=== PATIENT | female | born 1950 | race Caucasian/White ===

== ENCOUNTER 2018-06-12 21:54 | Emergency (ER) | payer BC ==
[~2018-06-12] VITALS: Ht 162.6 cm; Wt 83.2 kg
[2018-06-12 21:58] VITALS: Ht 162.6 cm; Wt 83.2 kg
[2018-06-12] MEDS ORDERED: PIOGLITAZONE15 MG PO (22:05)
[2018-06-12] MEDS ORDERED: VICTOZA0.6 MG/0.1 SQ (22:05)
[2018-06-12] MEDS ORDERED: BUTALB-APAP-CA1 EACH PO (22:06)
[2018-06-12] MEDS ORDERED: EFFEXOR75 MG PO (22:06)
[2018-06-12] MEDS ORDERED: LYRICA75 MG PO (22:06)
[2018-06-12] MEDS ORDERED: XANAX0.5 MG (22:07)
[2018-06-12] MEDS ORDERED: PERCOCET 5-3251 TAB PO (22:07)
[2018-06-12] MEDS ORDERED: TOPROL XL50 MG PO (22:07)
[2018-06-12] MEDS ORDERED: LIPITOR10 MG PO (22:08)
[2018-06-12] MEDS ORDERED: LISINOPRIL2.5 MG PO (22:08)
[2018-06-12] MEDS ORDERED: PROTONIX40 MG PO (22:08)
[2018-06-12] MEDS ORDERED: AMBIEN10 MG PO (22:08)
[2018-06-12] MEDS ORDERED: PROZAC40 MG PO (22:09)
[2018-06-12] MEDS ORDERED: ROBAXIN500 MG PO (23:53)
[2018-06-12] MEDS ORDERED: TORADOL10 MG PO (23:53)
[2018-06-13 00:41] VITALS: BP 179/73
== END 2018-06-13 00:42 | disposition home or self-care (01) ==
LOC: D.ER 21:54
DX: S16.1XXA Strain of muscle, fascia and tendon at neck level, initial encounter (principal); V49.9XXA Car occupant (driver) (passenger) injured in unspecified traffic accident, initial encounter; Y93.89 Activity, other specified; Y92.410 Unspecified street and highway as the place of occurrence of the external cause; S39.012A Strain of muscle, fascia and tendon of lower back, initial encounter

== ENCOUNTER 2018-07-23 08:59 | Inpatient (IN) | payer MEDICARE ==
[~2018-07-23] VITALS: Ht 162.6 cm; Wt 78.6 kg
--- NOTE | ~2018-07-23 | OP ---
PATIENT NAME: CHOLO RIVAS MEDICAL RECORD: [id number] :[birth year] LOCATION:D.MS [id number] ADMISSION DATE:07/23/18 SURGEON: JAMES PHILLIPS MD DATE OF OPERATION: 07/27/2018 PREOPERATIVE DIAGNOSIS: Severe spinal stenosis at T11-T12 secondary to spondylosis. POSTOPERATIVE DIAGNOSIS: Severe spinal stenosis at T11-T12 secondary to spondylosis. SURGEON: James Phillips MD PROCEDURE: Lumbar laminectomy, medial facetectomy and foraminotomy at T11-T12 with left-sided approach and sublaminar decompression. DESCRIPTION AND TECHNIQUE: After induction of general endotracheal anesthesia, the patient was rolled prone on chest and hip rolls. The thoracic spine was prepped and draped in usual sterile fashion. Fluoroscopic x-ray and spinal needle localized the T11-T12 interspace with a spinal needle. A stab incision was created with a #11 blade. Series of dilators was used to advance a METRx retractor at the T11-T12 interspace on the left side. Level was confirmed with fluoroscopic x-ray. A microscope and Midas Lyle drill were used to perform a laminectomy, medial facetectomy, and foraminal T11-T12 on the left. The spinous process at T11 and T12 were undermined with a Midas-Lyle drill and the lamina from that site was removed with a Midas-Lyle drill. Hypertrophied ligamentum flavum was removed with Cloward rongeurs. Following this, the dura was decompressed well. Next, a retractor was removed and that the fascia was closed with 2-0 Vicryl suture, the subdermal layer was closed with 3-0 Vicryl suture, the skin was closed with christie. Sterile dressing was applied to the wound. The patient was awakened in good condition, taken to recovery. All counts were reported as correct. Estimated blood loss was minimal. TRANSINT:[id number] Voice Confirmation ID: [id number] DOCUMENT ID: [id number] JAMES PHILLIPS MD CC: [id number] DICTATION DATE: 07/30/18805 NAPPER TENDER: 07/30/1838 ADM IN [place] [id number] [place] [address]
[~2018-07-23 08:59] MED LIST: AMBIEN10 MG PO; BUTALB-APAP-CA1 EACH PO; EFFEXOR75 MG PO; LIPITOR10 MG PO; LISINOPRIL2.5 MG PO; LYRICA75 MG PO; PERCOCET 5-3251 TAB PO; PIOGLITAZONE15 MG PO; PROTONIX40 MG PO; PROZAC40 MG PO; ROBAXIN500 MG PO; TOPROL XL50 MG PO; TORADOL10 MG PO; VICTOZA0.6 MG/0.1 SQ; XANAX0.5 MG PO
--- NOTE | 2018-07-23 11:22 | NUR ---
SPLINT APPLIED TO THE LLE PER EDP.
--- NOTE | 2018-07-23 11:23 | NUR ---
PT AWARE SHE IS BEING ADMITTED TO [facility], AWAITING BED ASSIGNMENT.
[2018-07-23] MEDS ORDERED: PIOGLITAZONE15 MG PO (11:27)
[2018-07-23] MEDS ORDERED: FEXOFENADINE H180 MG PO (11:30)
[2018-07-23 11:41] LABS: ANION GAP 9.1 mmol/L (8-16); BILIRUBIN - TOTAL 0.38 mg/dL (0.2-1.3); CALCIUM 8.7 mg/dL (8.5-10.1); CARBON DIOXIDE 29.5 mmol/L (21.0-32.0); CREATININE - SERUM 1.1 mg/dL (0.6-1.3); POTASSIUM - SERUM 4.6 mmol/L (3.5-5.1); PROTEIN - SERUM 6.8 g/dL (6.4-8.2)
[2018-07-23 11:43] LABS: BASOPHILS 0.4 % (0-2); EOSINOPHILS 3.1 % (0-7); HEMOGLOBIN 10.7 g/dL (12-16); IMMATURE GRANULOCYTES 0.1 % (0-5); LYMPHOCYTES 31.4 % (15-50); MCH 30.3 pg (26.0-34.0); MCHC 32.4 g/dL (31.0-37.0); MCV 93.5 fL (80.0-100.0); MEAN PLATELET VOLUME 11.2 fL (7.4-10.4); MONOCYTES 11.2 % (2-11); NEUTROPHILS 53.8 % (40-80); PLATELET COUNT 155 10x3/uL (130-400); RBC 3.53 10x6/uL (4.00-5.40); RDW 14.5 % (11.5-14.5); WBC 7.1 10x3/uL (4.8-10.8)
--- NOTE | 2018-07-23 12:00 | MORECARE ---
CASE MANAGEMENT DISCHARGE SUMMARY PATIENT: CHOLO RIVAS UNIT: [id number] ADM DATE: 07/23/18 AGE: 67 : 50 SEX: F ROOM/BED: D.2227 AUTHOR: DONNA COWAN PHYSICIAN: REFERRING PHYSICIAN: NIGHAT WILSON DO DATE OF SERVICE: 07/23/18 Discharge Plan Patient Name: CHOLO RIVAS [facility] [facility] 1950 Planned Disposition: Home Anticipated Discharge Date: 07/25/18 Discharge Date: Expected LOS: 2 Initial Reviewer: [email or web address] Initial Review Date: 07/23/2018 Generated: 07/23/18 1:00 pm DCPIA - Discharge Planning Initial Assessment Updated by [email or web address]: Chiara Wilson on 07/23/18 11:59 am * Is the patient Alert and Oriented? Yes * How many steps to enter\exit or inside your home? * PCP Dr. Kalyan Quiroz in [facility] - patient recently moved to [facility] and is looking for an new PCP. * Pharmacy [facility] near the [facility]. * Preadmission Environment Home Alone * ADLs Independent * Equipment Cane Glucometer Rolling Walker * List name and contact numbers for known caregivers / representatives who currently or will assist patient after discharge: Margret Albright - daughter - [phone] * Verbal permission to speak to the caregivers and representatives has been obtained from the patient. Yes * Community resources currently utilized None * Additional services required to return to the preadmission environment? No * Can the patient safely return to the preadmission environment? Yes * Has this patient been hospitalized within the prior 30 days at any hospital? No Patient Name: CHOLO RIVAS Page 12529 at 1200 All edits/amendments must be made on the electronic document DICTATION DATE: 07/23/18 1200 OPERATING ENGINEER APPRENTICE: MAMADOU 07/23/18 1200 RPT#: [id number] DC DATE: STATUS: ADM IN [facility] [address] [place] [address] END OF REPORT
--- NOTE | 2018-07-23 12:07 | MORECARE ---
CASE MANAGEMENT DISCHARGE SUMMARY PATIENT: CHOLO RIVAS UNIT: [id number] ADM DATE: 07/23/18 AGE: 67 : 50 SEX: F ROOM/BED: D.2227 AUTHOR: CAMRYN,DOC PHYSICIAN: REFERRING PHYSICIAN: NIGHAT WILSON DO DATE OF SERVICE: 07/23/18 Discharge Plan Patient Name: CHOLO RIVAS Facility: [facility]:[place] : 1950 Planned Disposition: Home Anticipated Discharge Date: 07/25/18 Discharge Date: Expected LOS: 2 Initial Reviewer: [email or web address] Initial Review Date: 07/23/2018 Generated: 07/23/18 1:07 pm Comments DCP- Discharge Planning Updated by [email or web address]: Chiara Wilson on 07/23/18 11:[address] Patient Name: CHOLO RIVAS Admission Status: ER Accout number: [id number] Admission Date: 07-23-2018 : 1950 Admission Diagnosis: Attending: NIGHAT WILSON Current LOS: 1 Anticipated DC Date: 07-25-2018 Planned Disposition: Home Primary Insurance: Seculert [facility] Discharge Planning Comments: CM met with patient to complete initial dc planning assessment. CM educated patient on the CM role and verbal consent given by patient to complete assessment. Patient lives at home alone and reports she is independent in her care. At discharge patient plans to return home alone and feels this is a safe discharge. CM discussed availability of home health, rehab services, and medical equipment. Patient denied known discharge needs at this time. Patient reports she recently moved to the [facility] and is needing to find a PCP here. This could cause a problem with arranging HH if needed at [place]. CM will continue to follow and will assist as needed with dc plans/needs. Surveyor Oil Well Directional: Chiara Wilson RN,[facility] DCPIA - Discharge Planning Initial Assessment Updated by [email or web address]: Chiara Wilson on 07/23/18 11:59 am * Is the patient Alert and Oriented? Yes * How many steps to enter\exit or inside your home? * PCP Dr. Kalyan Quiroz in [facility] - patient recently moved to [facility] and is looking for an new PCP. * Pharmacy [facility] near the [facility]. * Preadmission Environment Home Alone * ADLs Independent * Equipment Cane Glucometer Rolling Walker * List name and contact numbers for known caregivers / representatives who currently or will assist patient after discharge: Margret Albright - daughter - [phone] * Verbal permission to speak to the caregivers and representatives has been obtained from the patient. Yes * Community resources currently utilized None * Additional services required to return to the preadmission environment? No * Can the patient safely return to the preadmission environment? Yes * Has this patient been hospitalized within the prior 30 days at any hospital? No Last DP export: 07/23/18 11:00 am Patient Name: CHOLO RIVAS Page 53494 at 1207 All edits/amendments must be made on the electronic document DICTATION DATE: 07/23/181206 GLUE MACHINE OPERATOR: MAMADOU 07/23/181206 RPT#: [id number] DC DATE: STATUS: ADM IN [facility] [address] [place] [address] END OF REPORT
[2018-07-23 12:25] VITALS: BP 142/65; Ht 162.6 cm; Wt 78.6 kg
--- NOTE | 2018-07-23 12:29 | NUR ---
ASSESSMENT PER FLOW SHEET. PT IS WITHOUT DISTRESS AND SIGNS OF PAIN.FALL PREVENTION INITIATED. CALL LIGHT IN REACH
[2018-07-23 17:10] VITALS: BP 116/42
--- NOTE | 2018-07-23 19:55 | NUR ---
PT RESTING IN BED. ALERT AND ORIENTED. PT IS VERY UNPSET. PT STATES SHE HAS BEEN IN PAIN SINCE SHE HAS BEEN HERE AND NO ONE HAS OFFERED PAIN MEDICATION OR A DRINK OF WATER. I STATED TO PT I APOLIGIZE FOR HER LAYING IN PAIN AND I WILL BRING HER MEDICATION SHORTLY. NO SIGNS OF DISTRESS. BREATHING EVEN AND UNLABORED. IV SITE RT FA DRESSING CLEAN DRY AND INTACT. NO SIGNS OF INFECTION. BOWEL SOUNDS ACTIVE. NO LOWER LEG SWELLING PRESENT. CAST LT LEG CLEAN DRY AND INTACT. PLACED ICE PACK ON LEG AND ELEVATED LEG. WILL CONTINUE PLAN OF CARE. CALL LIGHT IN REACH. BED LOWERED AND LOCKED. RINKU ALARM ON. FAMILY AT BEDSIDE.
[2018-07-23 20:00] VITALS: BP 130/58
[2018-07-24] VITALS (7 sets, daily range): BP systolic 117–178; BP diastolic 46–69
--- NOTE | 2018-07-24 05:06 | NUR ---
I have reviewed this patient and I concur with the Shift Assessment completed by the Licensed Practical Nurse today this shift.
[2018-07-24 07:12] LABS: BASOPHILS 0.5 % (0-2); EOSINOPHILS 3.7 % (0-7); IMMATURE GRANULOCYTES 0.2 % (0-5); MCH 29.7 pg (26.0-34.0); MCHC 31.6 g/dL (31.0-37.0); MCV 94.1 fL (80.0-100.0); MEAN PLATELET VOLUME 12.2 fL (7.4-10.4); MONOCYTES 9.8 % (2-11); NEUTROPHILS 56.8 % (40-80); PLATELET COUNT 175 10x3/uL (130-400); RBC 4.04 10x6/uL (4.00-5.40); RDW 14.4 % (11.5-14.5); WBC 8.2 10x3/uL (4.8-10.8)
[2018-07-24 07:37] LABS: ALBUMIN 3.3 g/dL (3.4-5.0); ANION GAP 12.2 mmol/L (8-16); BILIRUBIN - TOTAL 0.41 mg/dL (0.2-1.3); CALCIUM 9.2 mg/dL (8.5-10.1); CARBON DIOXIDE 28.6 mmol/L (21.0-32.0); PROTEIN - SERUM 7.8 g/dL (6.4-8.2)
[2018-07-24 07:38] LABS: POTASSIUM - SERUM 3.8 mmol/L (3.5-5.1)
--- NOTE | 2018-07-24 08:00 | NUR ---
MORNING ASSESSMENT COMPLETE. SEE ASSESSMENT FLOWSHEET FOR FURTHER DETAILS. PT LYING IN BED AAO X4 TO PERSON, PLACE, TIME, AND SITUATION. DENIES NEEDS AT THIS TIME. CL IN REACH. SIDE RAILS UP X3 FOR PATIEN SAEFTY. FAMILY MEMBER AT BEDSIDE
[2018-07-24 18:34] LABS: APPEARANCE CLEAR (CLEAR); BILIRUBIN NEGATIVE (NEGATIVE); COLOR YELLOW (YELLOW); GLUCOSE NEGATIVE (NEGATIVE); KETONE NEGATIVE (NEGATIVE); NITRITE NEGATIVE (NEGATIVE); PROTEIN NEGATIVE (NEGATIVE); RED CELLS - URINE OCC /hpf (0-5); UROBILINOGEN NORMAL (NORMAL); WHITE CELLS - URINE 0-5 /hpf (0-5)
--- NOTE | 2018-07-24 21:00 | NUR ---
PT LYING IN BED, NO SIGNS OF DISTRESS. ALERT AND ORIENTED. FAMILY AT BEDSIDE. STATES PAIN 7/10 IN BACK. GAVE MORPHINE ORDERED. PT STARTED TO COMPLAIN OF ITCHING TO BILAT ARMS, NO HIVES PRESENT. MARIA ELENA HINTON SPORTS RECRUITER, ORDERED FOR BENADRYL 25MG IV Q6HPRN. GAVE BENADRYL ORDERED. PT REFUSES TO PUT BOOT ON LEFT ANKLE. ANKLE PROPPED ON PILLOW, APPLIED ICE PACK. IV LEFT AC SL, FLUSHES EASILY. DRESSING CDI. RINKU ON. DENIES OTHER NEEDS AT THIS TIME. CL IN REACH, WILL CONT TO MONITOR
[2018-07-25 04:39] VITALS: BP 156/51
[2018-07-25 07:36] LABS: BASOPHILS 0.3 % (0-2); HEMATOCRIT 36.7 % (36.0-48.0); HEMOGLOBIN 11.6 g/dL (12-16); IMMATURE GRANULOCYTES 0.2 % (0-5); LYMPHOCYTES 26.9 % (15-50); MCH 29.4 pg (26.0-34.0); MCHC 31.6 g/dL (31.0-37.0); MCV 93.1 fL (80.0-100.0); MEAN PLATELET VOLUME 12.5 fL (7.4-10.4); NEUTROPHILS 57.6 % (40-80); PLATELET COUNT 177 10x3/uL (130-400); RBC 3.94 10x6/uL (4.00-5.40); RDW 14.2 % (11.5-14.5); WBC 6.4 10x3/uL (4.8-10.8)
[2018-07-25 07:52] LABS: ALBUMIN 3.1 g/dL (3.4-5.0); ALKALINE PHOSPHATASE 84 U/L (46-116); ALT (SGPT) 111 U/L (10-68); BILIRUBIN - TOTAL 0.36 mg/dL (0.2-1.3); CALC OSMOLALITY 281 mosm/kg (275-300); CALCIUM 8.9 mg/dL (8.5-10.1); CARBON DIOXIDE 31.1 mmol/L (21.0-32.0); CHLORIDE - SERUM 104 mmol/L (98-107); CREATININE - SERUM 0.8 mg/dL (0.6-1.3); GLUCOSE 125 mg/dL (74-106); POTASSIUM - SERUM 3.9 mmol/L (3.5-5.1); PROTEIN - SERUM 7.2 g/dL (6.4-8.2); SODIUM 141 mmol/L (136-145); UREA NITROGEN 13 mg/dL (7-18); eGFR NON AFRICAN AMERICAN 76 mL/min (90-120)
[2018-07-25 09:35] VITALS: BP 160/62
--- NOTE | 2018-07-25 10:52 | NUR ---
MORNING ASSESSMENT COMPELTE. SEE ASSESSMENT FLWOSHEET FOR FURTHER DETIALS. PT LYING IN BED AAO X4 TO PERSON, PLACE, TIME , AND SITUATION. REQUESTING PAIN MED- WILL GIVE MORPHINE PER ORDER. DENIES FURTHER NEEDS AT THIS TIME. SIDE RAILS UP X3 FOR PT SAEFTY. BED IN LOWEST POSTIION.
[2018-07-25 13:51] VITALS: BP 126/54
--- NOTE | 2018-07-25 14:45 | NUR ---
PT REQUESTED PAIN MED- WENT IN ROOM TO GIVE MORPHINE AND PT STATED THAT IT MAKES HER ITCH AND SHE WANTS TO GET A DIFF MED. NOTIFIED ELLIOTT MATOS APN AND SHE PERSCRIBED ATAREX 25 FOR ITCHING. WENT BACK IN PTS ROOM TO TELL HER WE CAN GIVE ATAREX WITH MORPHINE TO HELP THE ITCHING AND PT REPLIES "DONT EVEN WORRY ABOUT IT ANYMORE. I ALREADY TOOK MY OWN PAIN MEDS THAT I BROUGHT". INFORMED PT THAT SHE NEEDS TO EITHER TAKE THEM HOME OR GIVE THEM TO ME SO I CAN LOCK THEM UP IN THE SAFE, PT REFUSED AND SAID SHE WOULD NOT GIVE ME HER MEDS. NOTIFIED DR WILSON AND HE IS GOING IN ROOM TO TALK TO PT.
--- NOTE | 2018-07-25 15:44 | NUR ---
No open or chronic wounds. Continue with pressure ulcer precautions: -Assess skin/bony prominences q shift -turn/reposition q 2 hours -bridge heels Wound care will monitor as needed.
[2018-07-25 18:07] VITALS: BP 142/61
[2018-07-25 20:00] VITALS: BP 149/46
--- NOTE | 2018-07-25 20:54 | NUR ---
OT NOTE: PT REFUSED SECONDARY TO PAIN.
--- NOTE | 2018-07-25 21:20 | NUR ---
AWAKE,ALERT.NO COMPLAITNS VOICED. MOVIE THEATER USHER MORPHINE IN USE FOR PAIN CONTROL. IV LEAKING AT SITE.DC'D WITH TIP INTACT. RESITED TO RFA X 1 ATTEMPT PER WILL SANCHEZ. NO DISTRESS NOTED. CL IN REACH
[2018-07-26 00:30] VITALS: BP 150/82
--- NOTE | 2018-07-26 03:45 | NUR ---
I have reviewed this patient and I concur with the Shift Assessment completed by the Licensed Practical Nurse today this shift.
[2018-07-26 05:00] VITALS: BP 150/65
[2018-07-26 06:46] LABS: BASOPHILS 0 % (0-2); EOSINOPHILS 0 % (0-7); HEMATOCRIT 34.8 % (36.0-48.0); HEMOGLOBIN 11.3 g/dL (12-16); IMMATURE GRANULOCYTES 0.1 % (0-5); LYMPHOCYTES 16.6 % (15-50); MCH 29.9 pg (26.0-34.0); MCHC 32.5 g/dL (31.0-37.0); MCV 92.1 fL (80.0-100.0); MEAN PLATELET VOLUME 12.2 fL (7.4-10.4); MONOCYTES 3.5 % (2-11); NEUTROPHILS 79.8 % (40-80); PLATELET COUNT 193 10x3/uL (130-400); RBC 3.78 10x6/uL (4.00-5.40); RDW 14.4 % (11.5-14.5)
[2018-07-26 06:47] LABS: WBC 8.8 10x3/uL (4.8-10.8)
[2018-07-26 07:01] LABS: ALBUMIN 2.9 g/dL (3.4-5.0); ANION GAP 11.8 mmol/L (8-16); BILIRUBIN - TOTAL 0.44 mg/dL (0.2-1.3); CARBON DIOXIDE 28.4 mmol/L (21.0-32.0); CREATININE - SERUM 0.9 mg/dL (0.6-1.3); POTASSIUM - SERUM 4.2 mmol/L (3.5-5.1); PROTEIN - SERUM 7.4 g/dL (6.4-8.2)
--- NOTE | 2018-07-26 08:00 | NUR ---
ALERT AND ORIENTED X 3. LUNGS CLEAR BILATERALLY IN ALL VALLE. HEART SOUNDS S1 AND S2 HEARD IN ALL VALLE. BOWEL SOUNDS ACTIVE X 4. SKIN INTACT WITHOUT REDNESS. IV TO RFA PATENT WITHOUT REDNESS. DENIES PAIN. DENIES FURTHER NEEDS. WILL CONTINUE TO MONITOR.
[2018-07-26 09:19] VITALS: BP 139/65
--- NOTE | 2018-07-26 10:51 | NUR ---
PATIENT LYING IN BED. DENIES PAIN. DENIES NEEDS AT THIS TIME.
[2018-07-26 12:27] VITALS: BP 135/54
--- NOTE | 2018-07-26 13:01 | NUR ---
EATING LUNCH. DENIES NEEDS. DENIES PAIN. WILL CONINUE TO MONITOR.
--- NOTE | 2018-07-26 15:14 | NUR ---
PATIENT RESTING IN BED. DENIES PAIN. DENIES NEEDS. WILL CONTINUE TO MONITOR.
--- NOTE | 2018-07-26 17:28 | NUR ---
PATIENT SITTING IN BED. DENIES PAIN. DENIES NEEDS. WILL CONTINUE TO MONITOR
--- NOTE | 2018-07-26 17:56 | NUR ---
PATIENT SITTING IN BED EATING DINNER. DENIES NEEDS
[2018-07-26 18:11] VITALS: BP 139/59
[2018-07-26 20:23] VITALS: BP 158/63
[2018-07-27 01:34] VITALS: BP 150/62
[2018-07-27 04:05] LABS: BASOPHILS 0.1 % (0-2); EOSINOPHILS 0 % (0-7); HEMATOCRIT 33.3 % (36.0-48.0); HEMOGLOBIN 10.8 g/dL (12-16); IMMATURE GRANULOCYTES 0.4 % (0-5); LYMPHOCYTES 14.4 % (15-50); MCH 29.6 pg (26.0-34.0); MCHC 32.4 g/dL (31.0-37.0); MCV 91.2 fL (80.0-100.0); MEAN PLATELET VOLUME 11.7 fL (7.4-10.4); MONOCYTES 2.7 % (2-11); NEUTROPHILS 82.4 % (40-80); PLATELET COUNT 195 10x3/uL (130-400); RBC 3.65 10x6/uL (4.00-5.40); RDW 14.4 % (11.5-14.5)
[2018-07-27 04:20] LABS: ALBUMIN 2.9 g/dL (3.4-5.0); ANION GAP 8.8 mmol/L (8-16); BILIRUBIN - TOTAL 0.38 mg/dL (0.2-1.3); CARBON DIOXIDE 29.6 mmol/L (21.0-32.0); CREATININE - SERUM 1.1 mg/dL (0.6-1.3); POTASSIUM - SERUM 4.4 mmol/L (3.5-5.1); PROTEIN - SERUM 7.3 g/dL (6.4-8.2)
[2018-07-27 04:58] VITALS: BP 141/63
--- NOTE | 2018-07-27 07:53 | NUR ---
NPO FOR SURGERY. DENIES NEEDS.CALL LIGHT IN REACH
--- NOTE | 2018-07-27 08:00 | NUR ---
ASSESSMENT PER FLOW SHEET. PT IS WITHOUT DISTRESS.CALL LIGHT IN REACH
[2018-07-27 08:52] VITALS: BP 143/53
--- NOTE | 2018-07-27 11:04 | NUR ---
iv tender, dcd with cath tip intact.IV SITED TO RIGHT UPPER ARM X1 STICK, ASEPTIC TECH,20G.
--- NOTE | 2018-07-27 12:30 | NUR ---
TO OR VIA BED
--- NOTE | 2018-07-27 15:19 | MORECARE ---
CASE MANAGEMENT DISCHARGE SUMMARY PATIENT: CHOLO RIVAS UNIT: [id number] ADM DATE: 07/23/18 AGE: 68 : 50 SEX: F ROOM/BED: D.2227 AUTHOR: CAMRYN,DOC PHYSICIAN: REFERRING PHYSICIAN: NIGHAT WILSON DO DATE OF SERVICE: 07/27/18 Discharge Plan Patient Name: CHOLO RIVAS Facility: [facility]:[place] : 1950 Planned Disposition: Home Anticipated Discharge Date: 07/25/18 Discharge Date: Expected LOS: 2 Initial Reviewer: [email or web address] Initial Review Date: 07/23/2018 Generated: 07/27/18 4:19 pm Comments DCP- Discharge Planning Updated by [email or web address]: Lani Wylie on 07/27/18 2:[address] PATIENT IS STILL IN SURGERY. I LEFT THE PHYSICIAN REFERRAL NUMBER AND ALSO THE NUMBER TO [facility]. CM WILL CONTINUE TO FOLLOW AND ASSIST WITH DISCHARGE PLANNING/NEEDS. DCP- Discharge Planning Updated by [id number]: Chiara Wilson on 07/23/18 11:[address] Patient Name: CHOLO RIVAS Admission Status: ER Accout number: [id number] Admission Date: 07-23-2018 : 1950 Admission Diagnosis: Attending: NIGHAT WILSON Current LOS: 1 Anticipated DC Date: 07-25-2018 Planned Disposition: Home Primary Insurance: Original [facility] Discharge Planning Comments: CM met with patient to complete initial dc planning assessment. CM educated patient on the CM role and verbal consent given by patient to complete assessment. Patient lives at home alone and reports she is independent in her care. At discharge patient plans to return home alone and feels this is a safe discharge. CM discussed availability of home health, rehab services, and medical equipment. Patient denied known discharge needs at this time. [place] needing [place] find a PCP here. This could cause a problem with arranging HH if needed [place]. CM will continue to follow and will assist as needed with dc plans/needs. Window Glass Cutter Off: Chiara Wilson RN,[facility] DCPIA - Discharge Planning Initial Assessment Updated by [email or web address]: Chiara Wilson on 07/23/18 11:59 am * Is the patient Alert and Oriented? Yes * How many steps to enter\exit or inside your home? * PCP Dr. Kalyan Quiroz in [facility] - patient recently moved to [facility] and is looking for an new PCP. * Pharmacy [facility] near the [facility]. * Preadmission Environment Home Alone * ADLs Independent * Equipment Cane Glucometer Rolling Walker * List name and contact numbers for known caregivers / representatives who currently or will assist patient after discharge: Margret Albright - daughter - [phone] * Verbal permission to speak to the caregivers and representatives has been obtained from the patient. Yes * Community resources currently utilized None * Additional services required to return to the preadmission environment? No * Can the patient safely return to the preadmission environment? Yes * Has this patient been hospitalized within the prior 30 days at any hospital? No Last DP export: 07/23/18 11:07 am Patient Name: CHOLO RIVAS Page [phone] at 1519 All edits/amendments must be made on the electronic document DICTATION DATE: 07/27/181518 CHAR FILTER OPERATOR HELPER: MAMADOU 07/27/181518 RPT#: [id number] DC DATE: STATUS: ADM IN [facility] [address] [place] [address] END OF REPORT
[2018-07-27 15:43] VITALS: BP 159/75
--- NOTE | 2018-07-27 15:46 | NUR ---
BACK FROM PACU VIA BED. PT S AWAKE AND WITHOUT DISTRESS.SEE VS FLOWSHEET
--- NOTE | 2018-07-27 17:31 | NUR ---
STILL DENIES PAIN AT PRESENT. FAMILY AT BESIDE. PT IS EATING DINNER TRAY
[2018-07-27 20:00] VITALS: BP 113/45
[2018-07-28 00:54] VITALS: BP 123/45
[2018-07-28 05:26] VITALS: BP 121/76
[2018-07-28 06:38] LABS: BASOPHILS 0 % (0-2); EOSINOPHILS 0 % (0-7); HEMATOCRIT 32.1 % (36.0-48.0); HEMOGLOBIN 10.3 g/dL (12-16); IMMATURE GRANULOCYTES 0.3 % (0-5); LYMPHOCYTES 10.3 % (15-50); MCH 29.4 pg (26.0-34.0); MCHC 32.1 g/dL (31.0-37.0); MCV 91.7 fL (80.0-100.0); MONOCYTES 3.6 % (2-11); NEUTROPHILS 85.8 % (40-80); PLATELET COUNT 208 10x3/uL (130-400); RDW 14.6 % (11.5-14.5)
[2018-07-28 07:06] LABS: WBC 15.8 10x3/uL (4.8-10.8)
[2018-07-28 07:07] LABS: ALBUMIN 2.6 g/dL (3.4-5.0); ANION GAP 12.4 mmol/L (8-16); BILIRUBIN - TOTAL 0.31 mg/dL (0.2-1.3); CALCIUM 8.5 mg/dL (8.5-10.1); CARBON DIOXIDE 26.8 mmol/L (21.0-32.0); POTASSIUM - SERUM 4.2 mmol/L (3.5-5.1); PROTEIN - SERUM 6.6 g/dL (6.4-8.2)
--- NOTE | 2018-07-28 07:30 | NUR ---
PT AAOX4 RESP EVEN AND NONLBAORED, WANTING TO SIT UP IN CHAIR AT BEDSIDE I EXPRESSED TO PT THAT I WOULD HAVE TO GET PHYSICAL THERAPY TO HELP WITH THAT PT NO SIGNS OF DISTRESS NOTED, CL IN REACH
[2018-07-28 09:04] VITALS: BP 126/44
[2018-07-28 12:15] VITALS: BP 140/56
--- NOTE | 2018-07-28 16:05 | NUR ---
I have reviewed this patient and I concur with the Shift Assessment completed by the Licensed Practical Nurse today this shift.
[2018-07-28 17:51] VITALS: BP 132/46
[2018-07-28 20:00] VITALS: BP 130/46
--- NOTE | 2018-07-28 22:15 | NUR ---
PT ALERT & ORIENTED. PAIN CONTROLLED WITH LEGAL BILLING SPECIALIST. PUT PT ON BEDPAN TO VOID. NO OTHER NEEDS. ASSESSMENT COMPLETE PER FLOW-SHEET. WILL CONTINUE TO MONITOR.
[2018-07-29] VITALS: BP 128/51
[2018-07-29 03:00] VITALS: BP 144/40
[2018-07-29 06:21] LABS: BASOPHILS 0 % (0-2); EOSINOPHILS 0 % (0-7); HEMATOCRIT 32.6 % (36.0-48.0); HEMOGLOBIN 10.4 g/dL (12-16); IMMATURE GRANULOCYTES 0.4 % (0-5); LYMPHOCYTES 10.9 % (15-50); MCH 29.3 pg (26.0-34.0); MCHC 31.9 g/dL (31.0-37.0); MCV 91.8 fL (80.0-100.0); MEAN PLATELET VOLUME 11.7 fL (7.4-10.4); MONOCYTES 4.8 % (2-11); NEUTROPHILS 83.9 % (40-80); PLATELET COUNT 189 10x3/uL (130-400); RBC 3.55 10x6/uL (4.00-5.40); RDW 14.7 % (11.5-14.5); WBC 12.2 10x3/uL (4.8-10.8)
[2018-07-29 06:50] LABS: ALBUMIN 2.5 g/dL (3.4-5.0); ANION GAP 10.7 mmol/L (8-16); BILIRUBIN - TOTAL 0.31 mg/dL (0.2-1.3); CALCIUM 8.2 mg/dL (8.5-10.1); CARBON DIOXIDE 27.3 mmol/L (21.0-32.0); PROTEIN - SERUM 6.5 g/dL (6.4-8.2)
[2018-07-29 09:54] VITALS: BP 140/50
--- NOTE | 2018-07-29 10:00 | NUR ---
PT WANTING BEDPAN DONE AT THIS TIME
[2018-07-29 13:43] VITALS: BP 153/59
[2018-07-29 17:49] VITALS: BP 123/60
--- NOTE | 2018-07-29 18:55 | NUR ---
I have reviewed this patient and I concur with the Shift Assessment completed by the Licensed Practical Nurse today this shift.
[2018-07-29 20:23] VITALS: BP 115/61
--- NOTE | 2018-07-29 21:57 | NUR ---
PT ALERT & ORIENTED. FSBS 286 - GAVE 6 UNITS INSULIN PER SS. GAVE SCHEDULED MEDS. COMPLETE ASSESSMENT PER FLOW-SHEET. NO OTHER NEEDS. WILL CONTINUE TO MONITOR.
[2018-07-30 00:47] VITALS: BP 136/55
[2018-07-30 05:27] VITALS: BP 112/80
[2018-07-30 06:44] LABS: BASOPHILS 0.1 % (0-2); EOSINOPHILS 0 % (0-7); HEMATOCRIT 33.2 % (36.0-48.0); HEMOGLOBIN 10.8 g/dL (12-16); IMMATURE GRANULOCYTES 0.7 % (0-5); LYMPHOCYTES 13.1 % (15-50); MCH 29.6 pg (26.0-34.0); MCHC 32.5 g/dL (31.0-37.0); MEAN PLATELET VOLUME 11.8 fL (7.4-10.4); NEUTROPHILS 82.1 % (40-80); PLATELET COUNT 216 10x3/uL (130-400); RBC 3.65 10x6/uL (4.00-5.40); RDW 14.2 % (11.5-14.5); WBC 10.6 10x3/uL (4.8-10.8)
[2018-07-30 07:12] LABS: ALBUMIN 2.5 g/dL (3.4-5.0); ALKALINE PHOSPHATASE 61 U/L (46-116); ALT (SGPT) 45 U/L (10-68); BILIRUBIN - TOTAL 0.31 mg/dL (0.2-1.3); CALC OSMOLALITY 295 mosm/kg (275-300); CALCIUM 8.2 mg/dL (8.5-10.1); CARBON DIOXIDE 29.5 mmol/L (21.0-32.0); CHLORIDE - SERUM 106 mmol/L (98-107); CREATININE - SERUM 0.8 mg/dL (0.6-1.3); GLUCOSE 231 mg/dL (74-106); POTASSIUM - SERUM 4.5 mmol/L (3.5-5.1); PROTEIN - SERUM 6.4 g/dL (6.4-8.2); SODIUM 142 mmol/L (136-145); UREA NITROGEN 29 mg/dL (7-18); eGFR NON AFRICAN AMERICAN 75 mL/min (90-120)
--- NOTE | 2018-07-30 08:00 | NUR ---
MORNING ASSESSMENT COMPLETE. SEE ASSESSMENT FLOWSHEET FOR FURTHER DETAILS. PT LYING IN BED AAO X4 TO PERSON, PLACE, TIME, AND SITUATION. DENIES NEEDS AT THIS TIME. CL IN REACH. SIDE RAILS UP X3 FOR PT SAEFTY. BED IN LOWEST POSITION.
[2018-07-30 10:07] VITALS: BP 168/69
[2018-07-30 14:37] VITALS: BP 152/60
--- NOTE | 2018-07-30 14:46 | NUR ---
NUTRITION F/U PT REPORTS TOLERATING DIABETIC DIET WITH GOOD PO INTAKE. USING AVAILABLE INFORMATION PT REMAINS AT LOW NUTRITIONAL RISK. RD FOLLOWING
--- NOTE | 2018-07-30 14:58 | NUR ---
All information has been submitted to [facility] for acute inpatient rehab Pending auth # [id number]. Will wait for a determination regarding authorization for the ARU. Katie Cifuentes RN Clinical Liaison, Rehab
--- NOTE | 2018-07-30 15:52 | NUR ---
OT NOTE: PT COMPLETED BUE AROM EXS. PT COMPLETED SIMPLE HYGIENE TASKS WITH SET UP. THANK YOU, ROSIE CARLSON
[2018-07-30 18:12] VITALS: BP 138/53
[2018-07-30 21:57] VITALS: BP 146/55
[2018-07-31 01:45] VITALS: BP 123/48
--- NOTE | 2018-07-31 05:02 | NUR ---
PT HAS RESTED THIS SHIFT. HAS HAD NO C/O PAIN. CALL LIGHT REMAINS IN PLACE. DRESSING TO BACK REMAINS CLEAN DRY AND INTACT.
[2018-07-31 05:19] VITALS: BP 141/56
[2018-07-31 06:32] LABS: BASOPHILS 0 % (0-2); EOSINOPHILS 0 % (0-7); HEMATOCRIT 33.2 % (36.0-48.0); HEMOGLOBIN 10.7 g/dL (12-16); IMMATURE GRANULOCYTES 0.6 % (0-5); LYMPHOCYTES 13.1 % (15-50); MCH 29.4 pg (26.0-34.0); MCHC 32.2 g/dL (31.0-37.0); MCV 91.2 fL (80.0-100.0); MEAN PLATELET VOLUME 11.6 fL (7.4-10.4); MONOCYTES 5.4 % (2-11); NEUTROPHILS 80.9 % (40-80); PLATELET COUNT 215 10x3/uL (130-400); RBC 3.64 10x6/uL (4.00-5.40); RDW 14.2 % (11.5-14.5); WBC 11.6 10x3/uL (4.8-10.8)
[2018-07-31 07:25] LABS: ALBUMIN 2.3 g/dL (3.4-5.0); BILIRUBIN - TOTAL 0.38 mg/dL (0.2-1.3); CALCIUM 8.4 mg/dL (8.5-10.1); CARBON DIOXIDE 29.3 mmol/L (21.0-32.0); CREATININE - SERUM 0.9 mg/dL (0.6-1.3); POTASSIUM - SERUM 4.3 mmol/L (3.5-5.1); PROTEIN - SERUM 6.1 g/dL (6.4-8.2)
[2018-07-31 08:17] VITALS: BP 152/62
--- NOTE | 2018-07-31 09:20 | NUR ---
PATIENT ALERT AND ORIENTED X 3. LUNGS CLEAR BILATERALLY IN ALL VALLE. HEART SOUNDS S1 AND S2 HEARD BILATERALLY IN ALL VALLE. BOWEL SOUNDS ACIVE X 4. SKIN INTACT WITHOUT REDNESS. ASSISTED TO BEDPAN. LARGE VOID NOTED. IV TO LEFT THUMB PATENT WITHOUT REDNESS. RHEOLOGIST D/C. PATIENT EDUCATION PROVIDED ON PO PAIN MEDICATION. PATIENT STATES IS READY TO MOVE TO REHAB. WILL CONTINUE TO MONITOR.
--- NOTE | 2018-07-31 10:26 | NUR ---
PATIENT LYING IN BED. STATES PAIN 4/10. DOES NOT WANT PRN PO PAIN MEDICATION AT THIS TIME. WILL CONTINUE TO MONITOR.
--- NOTE | 2018-07-31 13:21 | NUR ---
OT NOTE: PT PERFORMED WELL TODAY. BED MOB WITH VERY MINIMAL ASSIST FOR SUPINE TO SIT AND SIT TO SUPINE. APPLIED BACK BRACE AND PERFORMED STANDING ACT WITH NWB IN R LE. ABLE TO STAND X 3 TRIALS AT APPROX 2.5 MIN EACH. EDUCATED AND PRACTICED HIP FLEX BEFORE DECENT INTO SITTING TO PREVENT PT FROM FALLING BACKWARDS INTO BED. STRENGTHENING EXS WITH MIN REST BREAKS. UPPER BODY GROOMING AND DRESSING WITH SET UP. PT WILL BE A GREAT REHAB CANDIDATE. TORSTEN BOLES, OTR/L
[2018-07-31 13:27] VITALS: BP 146/68
--- NOTE | 2018-07-31 13:30 | NUR ---
LUNCH AT BEDSIDE. DENIES NEEDS. WILL CONTINUE TO MONITOR
--- NOTE | 2018-07-31 14:43 | NUR ---
RESTING IN BED. WILL CONTINUE TO MONITOR
--- NOTE | 2018-07-31 15:58 | NUR ---
PATIENT STATES STILL IN PAIN 9/10 AFTER PRN TRAMADOL.
--- NOTE | 2018-07-31 16:33 | NUR ---
PRN NORCO GIVEN FOR PAIN 01/01. WILL CONTINUE TO MONITOR
--- NOTE | 2018-07-31 17:03 | NUR ---
OT NOTE: PT COMPLETED BED MOB WITH CGA. PT COMPLETED EOB SITTING BALANCE WITH SBA. PT COMPLETED BUE AROM AXS. THANK YOU, ROSIE CARLSON
[2018-07-31 17:49] VITALS: BP 173/67
--- NOTE | 2018-07-31 18:46 | NUR ---
ASSISTED TO BEDPAN. DENIES FURTHER NEEDS
[2018-07-31 21:18] VITALS: BP 140/54
[2018-08-01 02:04] VITALS: BP 154/60
[2018-08-01 05:39] LABS: BASOPHILS 0 % (0-2); EOSINOPHILS 0.1 % (0-7); HEMATOCRIT 34.1 % (36.0-48.0); HEMOGLOBIN 11.1 g/dL (12-16); IMMATURE GRANULOCYTES 0.6 % (0-5); LYMPHOCYTES 18.3 % (15-50); MCH 29.2 pg (26.0-34.0); MCHC 32.6 g/dL (31.0-37.0); MCV 89.7 fL (80.0-100.0); MONOCYTES 9.5 % (2-11); NEUTROPHILS 71.5 % (40-80); PLATELET COUNT 251 10x3/uL (130-400); RDW 14.1 % (11.5-14.5); WBC 13.2 10x3/uL (4.8-10.8)
[2018-08-01 05:46] LABS: ALBUMIN 2.4 g/dL (3.4-5.0); ANION GAP 8.8 mmol/L (8-16); BILIRUBIN - TOTAL 0.33 mg/dL (0.2-1.3); CALCIUM 8.2 mg/dL (8.5-10.1); CARBON DIOXIDE 30.9 mmol/L (21.0-32.0); CREATININE - SERUM 0.9 mg/dL (0.6-1.3); POTASSIUM - SERUM 3.7 mmol/L (3.5-5.1)
[2018-08-01 05:59] VITALS: BP 149/71
--- NOTE | 2018-08-01 07:45 | NUR ---
ASSESSMENT PER FLOW SHEET. PT IS WITHOUT DISTRESS.FALL PREVENTION IN PLACE. MOITOR FOR NEEDS
[2018-08-01 09:41] VITALS: BP 171/68
--- NOTE | 2018-08-01 14:20 | NUR ---
OT NOTE: PT REPORTED INCREASED PAIN IN B FEET TODAY. REPORTED THAT THEY FELT COLD AND NUMB. PERFORMED BED MOB WITH SPV; PRACTICED SIT TO STAND X 3 REPS WITH NWB AND USE OF WALKER WITH MIN/MOD ASSIST. STANDING BALANCE AND TOLERANCE ACT X 3 TRIALS AT 2 MIN EACH. GROOMING, FEEDING, AND UE DRSSING WITH SET UP/MIN ASSIST; EXTENSIVE ASSIST WITH DONNING SOCKS AND BACK BRACE. PT DOING WELL AND REQUESTING TO GO TO REHAB. D/W NEUROSURGICAL NURSE WHO REPORTS THAT SHE MAY BE ACCEPTED TODAY. TORSTEN BOLES, OTR/L
[2018-08-01 15:09] VITALS: BP 146/56
[2018-08-01 15:15] LABS: APPEARANCE CLEAR (CLEAR); BILIRUBIN NEGATIVE (NEGATIVE); COLOR YELLOW (YELLOW); GLUCOSE NEGATIVE (NEGATIVE); KETONE NEGATIVE (NEGATIVE); NITRITE NEGATIVE (NEGATIVE); PROTEIN NEGATIVE (NEGATIVE); SPECIFIC GRAVITY 1.015 (1.005-1.020); UROBILINOGEN NORMAL (NORMAL)
--- NOTE | 2018-08-01 16:20 | NUR ---
Recieved a call from Araseli with [facility] . The medical appointment clerk has denied the request for ARU for this patient stating it does not meet IQ criteria. If physician disagrees a peer to peer can be arranged by calling Araseli with the attendings name and contact number within 7 days of deniel date 08/01/18. Called and left a V/M for the CM Lani Wylie. Katie Cifuentes RN Clinical Liaison, Rehab
--- NOTE | 2018-08-01 16:47 | MORECARE ---
CASE MANAGEMENT DISCHARGE SUMMARY PATIENT: CHOLO RIVAS UNIT: [id number] ADM DATE: 07/23/18 AGE: 68 : 50 SEX: F ROOM/BED: D.2227 AUTHOR: CAMRYN,DOC PHYSICIAN: REFERRING PHYSICIAN: NIGHAT WILSON DO DATE OF SERVICE: 08/01/18 Discharge Plan Patient Name: CHOLO RIVAS Facility: [facility]:[place] : 1950 Planned Disposition: Home Anticipated Discharge Date: 07/25/18 Discharge Date: Expected LOS: 2 Initial Reviewer: [email or web address] Initial Review Date: 07/23/2018 Generated: 08/01/18 5:47 pm Comments DCP- Discharge Planning Updated by [email or web address]: Lani Wylie on 08/01/18 3:[address] Spoke with the patient concerning rehab and she is agreeable to SNF if inpatient rehab is denied. She would like to go to [place], her daughter lives there. She is going to ask her daughter about [facility] in [place] and will let me know if I can send the referral there. CM will continue to follow and assist with discharge planning/needs. DCP- Discharge Planning Updated by [email or web address]: Lani Wylie on 07/27/18 2:[address] PATIENT IS STILL IN SURGERY. I LEFT THE PHYSICIAN REFERRAL NUMBER AND ALSO THE NUMBER TO [facility]. CM WILL CONTINUE TO FOLLOW AND ASSIST WITH DISCHARGE PLANNING/NEEDS. DCP- Discharge Planning Updated by [email or web address]: Chiara Wilson on 07/23/18 11:[address] Patient Name: CHOLO RIVAS Admission Status: ER Accout number: [id number] Admission Date: 07-23-2018 : 1950 Admission Diagnosis: Attending: NIGHAT WILSON Current LOS: 1 Anticipated DC Date: 07-25-2018 Planned Disposition: Home Primary Insurance: [facility] ADVANTAGE [facility] Discharge Planning Comments: CM met with patient to complete initial dc planning assessment. CM educated patient on the CM role and verbal consent given by patient to complete assessment. Patient lives at home alone and reports she is independent in her care. At discharge patient plans to return home alone and feels this is a safe discharge. CM discussed availability of home health, rehab services, and medical equipment. Patient denied known discharge needs at this time. Patient reports she recently moved to the [facility] and is needing to find a PCP here. This could cause a problem with arranging HH if needed at [place]. CM will continue to follow and will assist as needed with dc plans/needs. Senior Editor: Chiara Wilson RN,[facility] DCPIA - Discharge Planning Initial Assessment Updated by [email or web address]: Chiara Wilson on 07/23/18 11:59 am * Is the patient Alert and Oriented? Yes * How many steps to enter\exit or inside your home? * PCP Dr. Kalyan Quiroz in [facility] - patient recently moved to [facility] and is looking for an new PCP. * Pharmacy [facility] near the [facility]. * Preadmission Environment Home Alone * ADLs Independent * Equipment Cane Glucometer Rolling Walker * List name and contact numbers for known caregivers / representatives who currently or will assist patient after discharge: Margret Albright - daughter - [phone] * Verbal permission to speak to the caregivers and representatives has been obtained from the patient. Yes * Community resources currently utilized None * Additional services required to return to the preadmission environment? No * Can the patient safely return to the preadmission environment? Yes * Has this patient been hospitalized within the prior 30 days at any hospital? No Last DP export: 07/27/18 2:19 pm Patient Name: CHOLO RIVAS Page 46738 at 1647 All edits/amendments must be made on the electronic document DICTATION DATE: 08/01/181646 UNIX DEVELOPER: MAMADOU 08/01/181646 RPT#: [id number] DC DATE: STATUS: ADM IN [facility] [address] [place] [address] END OF REPORT
[2018-08-01 17:54] VITALS: BP 133/49
--- NOTE | 2018-08-01 19:03 | NUR ---
AWAKE AND ALERT OX4 SRX2 AND BED IS LOW WITH CALL LIGHT IN REACH. LFT FA IV WITH LR AT 50/HR NO EDEMA NO PAIN SKIN WARM AND DRY AND LCTA DENIES NEEDS AT THIS TIME.
--- NOTE | 2018-08-01 19:56 | NUR ---
REMAINS WITHOUT NEEDS,WITHOUT CHANGE. CONT PLAN OF CARE
--- NOTE | 2018-08-01 21:05 | NUR ---
I EXPLAINED TO PT ABOUT THE DANGERS OF TYLENOL OD BEFORE GIVING NARCO
[2018-08-01 22:22] VITALS: BP 129/53
--- NOTE | 2018-08-02 00:58 | NUR ---
AT REST WITH EYES CLOSED NO NOTED DISTRESS
--- NOTE | 2018-08-02 04:33 | NUR ---
I have reviewed this patient and I concur with the Shift Assessment completed by the Licensed Practical Nurse today this shift.
[2018-08-02 05:16] VITALS: BP 134/51
[2018-08-02 05:46] LABS: BASOPHILS 0 % (0-2); EOSINOPHILS 1.6 % (0-7); HEMATOCRIT 34.1 % (36.0-48.0); HEMOGLOBIN 11.1 g/dL (12-16); IMMATURE GRANULOCYTES 0.7 % (0-5); LYMPHOCYTES 37.6 % (15-50); MCH 29.2 pg (26.0-34.0); MCHC 32.6 g/dL (31.0-37.0); MCV 89.7 fL (80.0-100.0); MEAN PLATELET VOLUME 11.2 fL (7.4-10.4); MONOCYTES 8.1 % (2-11); PLATELET COUNT 234 10x3/uL (130-400); RDW 14.4 % (11.5-14.5)
[2018-08-02 06:10] LABS: ALBUMIN 2.5 g/dL (3.4-5.0); ANION GAP 8.7 mmol/L (8-16); BILIRUBIN - TOTAL 0.41 mg/dL (0.2-1.3); CALCIUM 8.1 mg/dL (8.5-10.1); CARBON DIOXIDE 30.4 mmol/L (21.0-32.0); CREATININE - SERUM 0.9 mg/dL (0.6-1.3); POTASSIUM - SERUM 4.1 mmol/L (3.5-5.1); PROTEIN - SERUM 5.9 g/dL (6.4-8.2)
--- NOTE | 2018-08-02 07:34 | MORECARE ---
CASE MANAGEMENT DISCHARGE SUMMARY PATIENT: CHOLO RIVAS UNIT: [id number] ADM DATE: 07/23/18 AGE: 68 : 50 SEX: F ROOM/BED: D.2227 AUTHOR: CAMRYNDOC PHYSICIAN: REFERRING PHYSICIAN: NIGHAT WILSNO DO DATE OF SERVICE: 08/02/18 Discharge Plan Patient Name: CHOLO RIVAS Facility: [facility]:[place] : 1950 Planned Disposition: Home Anticipated Discharge Date: 07/25/18 Discharge Date: Expected LOS: 2 Initial Reviewer: [email or web address] Initial Review Date: 07/23/2018 Generated: 08/02/18 8:34 am Comments DCP- Discharge Planning Updated by [email or web address]: Lani Wylie on 08/01/18 3:[address] Spoke with the patient concerning rehab and she is agreeable to SNF if inpatient rehab is denied. She would like to go to [place], her daughter lives there. She is going to ask her daughter about [facility] in [place] and will let me know if I can send the referral there. CM will continue to follow and assist with discharge planning/needs. DCP- Discharge Planning Updated by [email or web address]: Lani Wylie on 07/27/18 2:[address] PATIENT IS STILL IN SURGERY. I LEFT THE PHYSICIAN REFERRAL NUMBER AND ALSO THE NUMBER TO [facility]. CM WILL CONTINUE TO FOLLOW AND ASSIST WITH DISCHARGE PLANNING/NEEDS. DCP- Discharge Planning Updated by [email or web address]: Chiara Wilson on 07/23/18 11:[address] Patient Name: CHOLO RIVAS Admission Status: ER Accout number: [id number] Admission Date: 07-23-2018 : 1950 Admission Diagnosis: Attending: NIGHAT WILSON Current LOS: 1 Anticipated DC Date: 07-25-2018 Planned Disposition: Home Primary Insurance: [facility] ADVANTAGE [facility] Discharge Planning Comments: CM met with patient to complete initial dc planning assessment. CM educated patient on the CM role and verbal consent given by patient to complete assessment. Patient lives at home alone and reports she is independent in her care. At discharge patient plans to return home alone and feels this is a safe discharge. CM discussed availability of home health, rehab services, and medical equipment. Patient denied known discharge needs at this time. Patient reports she recently moved to the [facility] and is needing to find a PCP here. This could cause a problem with arranging HH if needed at [place]. CM will continue to follow and will assist as needed with dc plans/needs. Portable Grinding Machine Operator: Chiara Wilson RN,[facility] DCPIA - Discharge Planning Initial Assessment Updated by [email or web address]: Chiara Wilson on 07/23/18 11:59 am * Is the patient Alert and Oriented? Yes * How many steps to enter\exit or inside your home? * PCP Dr. Kalyan Quiroz in [facility] - patient recently moved to [facility] and is looking for an new PCP. * Pharmacy [facility] near the [facility]. * Preadmission Environment Home Alone * ADLs Independent * Equipment Cane Glucometer Rolling Walker * List name and contact numbers for known caregivers / representatives who currently or will assist patient after discharge: Margret Albright - daughter - [phone] * Verbal permission to speak to the caregivers and representatives has been obtained from the patient. Yes * Community resources currently utilized None * Additional services required to return to the preadmission environment? No * Can the patient safely return to the preadmission environment? Yes * Has this patient been hospitalized within the prior 30 days at any hospital? No External Providers External Provider: [facility] Next Contact Date: Service Request Date: Service Type: Resolution: Reviewer: Comments: Last DP export: 08/01/18 3:47 p Patient Name: CHOLO RIVAS Page [id number] at 0734 All edits/amendments must be made on the electronic document DICTATION DATE: 08/02/1834 CRESTER: DM 08/02/1834 RPT#: [id number] DC DATE: STATUS: ADM IN [facility] [address] [place] [address] END OF REPORT
--- NOTE | 2018-08-02 07:48 | MORECARE ---
CASE MANAGEMENT DISCHARGE SUMMARY PATIENT: CHOLO RIVAS UNIT: [id number] ADM DATE: 07/23/18 AGE: 68 : 50 SEX: F ROOM/BED: D.2227 AUTHOR: CAMRYN,DOC PHYSICIAN: REFERRING PHYSICIAN: NIGHAT WILSON DO DATE OF SERVICE: 08/02/18 Discharge Plan Patient Name: CHOLO RIAVS Facility: [facility]:[place] : 1950 Planned Disposition: Home Anticipated Discharge Date: 07/25/18 Discharge Date: Expected LOS: 2 Initial Reviewer: [email or web address] Initial Review Date: 07/23/2018 Generated: 08/02/18 8:48 am Comments DCP- Discharge Planning Updated by [id number]: Lani Wylie on 08/02/18 6:[address] Spoke with patient this morning and she states she would just rather go to [facility] in [place] for rehab. CELINE signed and I notified mike Nobles for [facility], supporting clinical faxed. CM will continue to follow and assist with discharge planning/needs. DCP- Discharge Planning Updated by [email or web address]: Lani Wylie on 08/01/18 3:[address] Spoke with the patient concerning rehab and she is agreeable to SNF if inpatient rehab is denied. She would like to go to [place], her daughter lives there. She is going to ask her daughter about [facility] in [place] and will let me know if I can send the referral there. CM will continue to follow and assist with discharge planning/needs. DCP- Discharge Planning Updated by [email or web address]: Lani Sheehanmaggie on 07/27/18 2:[address] PATIENT IS STILL IN SURGERY. I LEFT THE PHYSICIAN REFERRAL NUMBER AND ALSO THE NUMBER TO [facility]. CM WILL CONTINUE TO FOLLOW AND ASSIST WITH DISCHARGE PLANNING/NEEDS. DCP- Discharge Planning Updated by [id number]: Chiara Wilson on 07/23/18 11:[address] Patient Name: CHOLO RIVAS Admission Status: ER Accout number: [id number] Admission Date: 07-23-2018 : 1950 Admission Diagnosis: Attending: NIGHAT WILSON Current LOS: 1 Anticipated DC Date: 07-25-2018 Planned Disposition: Home Primary Insurance: [employer] [facility] Discharge Planning Comments: CM met with patient to complete initial dc planning assessment. CM educated patient on the CM role and verbal consent given by patient to complete assessment. Patient lives at home alone and reports she is independent in her care. At discharge patient plans to return home alone and feels this is a safe discharge. CM discussed availability of home health, rehab services, and medical equipment. Patient denied known discharge needs at this time. Patient reports she recently moved to the [facility] and is needing to find a PCP here. This could cause a problem with arranging HH if needed at dc. CM will continue to follow and will assist as needed with dc plans/needs. Chemical Weigher: Chiara Wilson RN,[facility] DCPIA - Discharge Planning Initial Assessment Updated by [email or web address]: Chiara Wilson on 07/23/18 11:59 am * Is the patient Alert and Oriented? Yes * How many steps to enter\exit or inside your home? * PCP Dr. Kalyan Quiroz in [facility] - patient recently moved to [facility] and is looking for an new PCP. * Pharmacy [facility] near the [facility]. * Preadmission Environment Home Alone * ADLs Independent * Equipment Cane Glucometer Rolling Walker * List name and contact numbers for known caregivers / representatives who currently or will assist patient after discharge: Margret Albright - daughter - [phone] * Verbal permission to speak to the caregivers and representatives has been obtained from the patient. Yes * Community resources currently utilized None * Additional services required to return to the preadmission environment? No * Can the patient safely return to the preadmission environment? Yes * Has this patient been hospitalized within the prior 30 days at any hospital? No Coverage Notice Reviewer: [email or web address] Mary Jo Wylie Notice Issued Date-Time: 08/02/2018 7:39 Notice Type: Patient Choice Letter Notice Delivered To: Patient Relationship to Patient: Supply Chain Assistant Name: Delivery Method: HAND - Hand Delivered Elizabeth Days: Prior Verbal Notification: Recipient Understood Notice: Yes Recipient Signature: Yes Med Rec Note Co-signed by Attending: Coverage Notice Comment: CELINE FOR [facility] Aaron DP export: 08/02/18 6:34 a Patient Name: CHOLO RIVAS Page 58993 at 0748 All edits/amendments must be made on the electronic document DICTATION DATE: 08/02/18746 NEGATIVE DEVELOPER: MAMADOU 08/02/18746 RPT#: [id number] DC DATE: STATUS: ADM IN [facility] [address] [place] [address] END OF REPORT
--- NOTE | 2018-08-02 07:50 | NUR ---
PT RESTING IN BED, REQUESTING BED LUCAS. ASSISTED PT WITH USE OF BED LUCAS, PROVIDING ALBERTINA CARE. RESP EVEN AND UNLABORED. REPORTS PAIN 8/10 AT THIS TIME BACK AND ANKLES. INSTRUCTED PAIN MED TO BE ADMINISTERED PER MD ORDERS. IV TO LEFT FOREARM WITH LR @ 50ML/HR INFUSING VIA PUMP. SITE WITHOUT REDNESS OR EDEMA. DENIES FURTHER NEEDS AT THIS TIME. CL WITHIN REACH. ENCOURAGED TO CALL WITH NEEDS. CONTINUE POC
[2018-08-02 08:36] VITALS: BP 148/62
--- NOTE | 2018-08-02 10:00 | NUR ---
PT REPORTS PAIN 10/10 IN MID BACK DESCRIBED AND SHARP STABBING THAT IS INTERMITTENT. NURSE NOTIFIED OF PT PAIN. PAIN ADDRESSED. SEE EMAR.
--- NOTE | 2018-08-02 11:57 | MORECARE ---
CASE MANAGEMENT DISCHARGE SUMMARY PATIENT: CHOLO RIVAS UNIT: [id number] ADM DATE: 07/23/18 AGE: 68 : 50 SEX: F ROOM/BED: D.2227 AUTHOR: CAMRYN,DOC PHYSICIAN: REFERRING PHYSICIAN: NIGHAT WILSON DO DATE OF SERVICE: 08/02/18 Discharge Plan Patient Name: CHOLO RIVAS Facility: [facility]:[place] : 1950 Planned Disposition: Home Anticipated Discharge Date: 07/25/18 Discharge Date: Expected LOS: 2 Initial Reviewer: [email or web address] Initial Review Date: 07/23/2018 Generated: 08/02/18 12:57 pm Comments DCP- Discharge Planning Updated by [email or web address]: Lani Sheehanmaggie on 08/02/18 10:[address] Received a call from Araseli with [facility] that she had made a mistake and patient does meet inpatient rehab criteria with authorization for 2 weeks #[id number]. I spoke with the patient and she wants to go to [facility] for SNF. I informed Araseli and gave Araseli's number to Yin Lacey to call her for authorization. DCP- Discharge Planning Updated by [id number]: Lani Sheehnamaggie on 08/02/18 6:[address] Spoke with patient this morning and she states she would just rather go to [facility] in [place] for rehab. CELINE signed and I notified mike Nobles for [facility], supporting clinical faxed. CM will continue to follow and assist with discharge planning/needs. DCP- Discharge Planning Updated by [email or web address]: Lani Sheehanmaggie on 08/01/18 3:[address] Spoke with the patient concerning rehab and she is agreeable to SNF if inpatient rehab is denied. She would like to go to [place], her daughter lives there. She is going to ask her daughter about [facility] in [place] and will let me know if I can send the referral there. CM will continue to follow and assist with discharge planning/needs. DCP- Discharge Planning Updated by [email or web address]: Lani Dejan on 07/27/18 2:[address] PATIENT IS STILL IN SURGERY. I LEFT THE PHYSICIAN REFERRAL NUMBER AND ALSO THE NUMBER TO [facility]. CM WILL CONTINUE TO FOLLOW AND ASSIST WITH DISCHARGE PLANNING/NEEDS. DCP- Discharge Planning Updated by [email or web address]: Chiara Wilson on 07/23/18 11:[address] Patient Name: CHOLO RIVAS Admission Status: ER Accout number: [id number] Admission Date: 07-23-2018 : 1950 Admission Diagnosis: Attending: NIGHAT WILSON Current LOS: 1 Anticipated DC Date: 07-25-2018 Planned Disposition: Home Primary Insurance: [employer] [facility] Discharge Planning Comments: CM met with patient to complete initial dc planning assessment. CM educated patient on the CM role and verbal consent given by patient to complete assessment. Patient lives at home alone and reports she is independent in her care. At discharge patient plans to return home alone and feels this is a safe discharge. CM discussed availability of home health, rehab services, and medical equipment. Patient denied known discharge needs at this time. Patient reports she recently moved to the [facility] and is needing to find a PCP here. This could cause a problem with arranging HH if needed at [place]. CM will continue to follow and will assist as needed with dc plans/needs. Sample Collector: Chiara Wilson RN,[facility] DCPIA - Discharge Planning Initial Assessment Updated by [email or web address]: Chiara Wilson on 07/23/18 11:59 am * Is the patient Alert and Oriented? Yes * How many steps to enter\exit or inside your home? * PCP Dr. Kalyan Quiroz in [facility] - patient recently moved to [facility] and is looking for an new PCP. * Pharmacy [facility] near the [facility]. * Preadmission Environment Home Alone * ADLs Independent * Equipment Cane Glucometer Rolling Walker * List name and contact numbers for known caregivers / representatives who currently or will assist patient after discharge: Margret Albright - daughter - [phone] * Verbal permission to speak to the caregivers and representatives has been obtained from the patient. Yes * Community resources currently utilized None * Additional services required to return to the preadmission environment? No * Can the patient safely return to the preadmission environment? Yes * Has this patient been hospitalized within the prior 30 days at any hospital? No Coverage Notice Reviewer: [email or web address] Mary Jo Wylie Notice Issued Date-Time: 08/02/2018 7:39 Notice Type: Patient Choice Letter Notice Delivered To: Patient Relationship to Patient: Generation Engineer Name: Delivery Method: HAND - Hand Delivered Elizabeth Days: Prior Verbal Notification: Recipient Understood Notice: Yes Recipient Signature: Yes Med Rec Note Co-signed by Attending: Coverage Notice Comment: C[facility] FOR [facility] Last DP export: 08/02/18 6:48 a Patient Name: CHOLO RIVAS Page 12311 at 1157 All edits/amendments must be made on the electronic document DICTATION DATE: 08/02/18 115 GROUP ACCOUNT DIRECTOR: MAMADOU 08/02/18 1157 RPT#: [id number] DC DATE: STATUS: ADM IN [facility] [address] [place] [address] END OF REPORT
[2018-08-02 12:07] VITALS: BP 124/38
[2018-08-02] MEDS ORDERED: MIRALAX17 GM PO (14:21)
--- NOTE | 2018-08-02 14:35 | NUR ---
OT NOTE: PT REPORTING INCREASED PAIN IN BACK TODAY. PT WITH INCREASED DIFFICULTY WITH BED MOB..MOD ASSIST WITH ROLLING AND SUPINE TO SIT, HOWEVER, PT UNABLE TO PERFORM SITTING DUE TO PAIN. ASSISTED TO BED LUCAS WITH MOD ASSIST AND MAX ASSIST WITH HYGIENE. PT ABLE TO WASH FACE, HANDS, AND UPPER BODY WITH WASH CLOTH; MIN ASSIST WITH DONNING GOWN. WILL ATTEMPT LATER IF POSSIBLE. TORSTEN BOLES, OTR/L
--- NOTE | 2018-08-02 15:17 | MORECARE ---
CASE MANAGEMENT DISCHARGE SUMMARY PATIENT: CHOLO RIVAS UNIT: [id number] ADM DATE: 07/23/18 AGE: 68 : 50 SEX: F ROOM/BED: D.2227 AUTHOR: CAMRYN,DOC PHYSICIAN: REFERRING PHYSICIAN: NIGHAT WILSON DO DATE OF SERVICE: 08/02/18 Discharge Plan Patient Name: CHOLO RIVAS Facility: [facility]:[place] : 1950 Planned Disposition: Home Anticipated Discharge Date: 07/25/18 Discharge Date: Expected LOS: 2 Initial Reviewer: [email or web address] Initial Review Date: 07/23/2018 Generated: 08/02/18 4:17 pm Comments DCP- Discharge Planning Updated by [email or web address]: Lani Wylie on 08/02/18 2:[address] Yin called and states they have auth for patient to go to [facility]. Her daughter will take her per patient. Tian states ok for daughter to take her there. Dr. Aguilera states no need to repeat xray at this time. She will go to a skilled bed at [facility]. search marketing coordinator and primary nurse notified. CM will continue to follow and assist with discharge planning/needs. DCP- Discharge Planning Updated by [id number]: Lani Wylie on 08/02/18 10:[address] Received a call from Araseli with [facility] that she had made a mistake and patient does meet inpatient rehab criteria with authorization for 2 weeks #[id number]. I spoke with the patient and she wants to go to [facility] for SNF. I informed Araseli and gave Araseli's number to Yin Lacey to call her for authorization. DCP- Discharge Planning Updated by [id number]: Lani Wylie on 08/02/18 6:[address] Spoke with patient this morning and she states she would just rather go to [facility] in [place] for rehab. CELINE signed and I notified mike Nobles for [facility], supporting clinical faxed. CM will continue to follow and assist with discharge planning/needs. DCP- Discharge Planning Updated by [email or web address]: Lani Wylie on 08/01/18 3:[address] Spoke with the patient concerning rehab and she is agreeable to SNF if inpatient rehab is denied. She would like to go to [place], her daughter lives there. She is going to ask her daughter about [facility] in [place] and will let me know if I can send the referral there. CM will continue to follow and assist with discharge planning/needs. DCP- Discharge Planning Updated by [email or web address]: Lani Wylie on 07/27/18 2:[address] PATIENT IS STILL IN SURGERY. I LEFT THE PHYSICIAN REFERRAL NUMBER AND ALSO THE NUMBER TO [facility]. CM WILL CONTINUE TO FOLLOW AND ASSIST WITH DISCHARGE PLANNING/NEEDS. DCP- Discharge Planning Updated by [email or web address]: Chiara Wilson on 07/23/18 11:[address] Patient Name: CHOLO RIVAS Admission Status: ER Accout number: [id number] Admission Date: 07-23-2018 : 1950 Admission Diagnosis: Attending: NIGHAT WILSON Current LOS: 1 Anticipated DC Date: 07-25-2018 Planned Disposition: Home Primary Insurance: [employer] [facility] Discharge Planning Comments: CM met with patient to complete initial dc planning assessment. CM educated patient on the CM role and verbal consent given by patient to complete assessment. Patient lives at home alone and reports she is independent in her care. At discharge patient plans to return home alone and feels this is a safe discharge. CM discussed availability of home health, rehab services, and medical equipment. Patient denied known discharge needs at this time. Patient reports she recently moved to the [facility] and is needing to find a PCP here. This could cause a problem with arranging HH if needed at ar. CM will continue to follow and will assist as needed with dc plans/needs. Flash Ranging Crewmember: Chiara Wilson RN,[facility] DCPIA - Discharge Planning Initial Assessment Updated by [email or web address]: Chiara Wilson on 07/23/18 11:59 am * Is the patient Alert and Oriented? Yes * How many steps to enter\exit or inside your home? * PCP Dr. Kalyan Quiroz in [facility] - patient recently moved to [facility] and is looking for an new PCP. * Pharmacy [facility] near the [facility]. * Preadmission Environment Home Alone * ADLs Independent * Equipment Cane Glucometer Rolling Walker * List name and contact numbers for known caregivers / representatives who currently or will assist patient after discharge: Margret Albright - daughter - [phone] * Verbal permission to speak to the caregivers and representatives has been obtained from the patient. Yes * Community resources currently utilized None * Additional services required to return to the preadmission environment? No * Can the patient safely return to the preadmission environment? Yes * Has this patient been hospitalized within the prior 30 days at any hospital? No Coverage Notice Reviewer: [id number] Wylie Notice Issued Date-Time: 08/02/2018 7:39 Notice Type: Patient Choice Letter Notice Delivered To: Patient Relationship to Patient: Retail Cashier Associate Name: Delivery Method: HAND - Hand Delivered Elizabeth Days: Prior Verbal Notification: Recipient Understood Notice: Yes Recipient Signature: Yes Med Rec Note Co-signed by Attending: Coverage Notice Comment: [facility] Reviewer: [id number] Wylie Notice Issued Date-Time: 08/02/2018 15:03 Notice Type: IM Discharge Notice Notice Delivered To: Patient Relationship to Patient: Retail Cashier Associate Name: Delivery Method: HAND - Hand Delivered Elizabeth Days: Prior Verbal Notification: Recipient Understood Notice: Yes Recipient Signature: Yes Med Rec Note Co-signed by Attending: Coverage Notice Comment: IMM explained, signed, given, copy placed in MR Last DP export: 08/02/18 10:57 a Patient Name: CHOLO RIVAS Page [id number] at 1517 All edits/amendments must be made on the electronic document DICTATION DATE: 08/02/181516 NICKEL PLANT OPERATOR: MAMADOU 08/02/181516 RPT#: [id number] DC DATE: STATUS: ADM IN [facility] [address] [place] [address] END OF REPORT
[2018-08-02] MEDS ORDERED: HYDROCODON-ACE1 EAC2 PO (16:32)
--- NOTE | 2018-08-03 12:19 | MORECARE ---
CASE MANAGEMENT DISCHARGE SUMMARY PATIENT: CHOLO RIVAS UNIT: [id number] ADM DATE: 07/23/18 AGE: 68 : 50 SEX: F ROOM/BED: D.2227 AUTHOR: CAMRYN,DOC PHYSICIAN: REFERRING PHYSICIAN: NIGHAT WILSON DO DATE OF SERVICE: 08/03/18 Discharge Plan Patient Name: CHOLO RIVAS Facility: [facility]:[place] : 1950 Planned Disposition: Home Anticipated Discharge Date: 07/25/18 Discharge Date: 08/02/2018 Expected LOS: 2 Initial Reviewer: [email or web address] Initial Review Date: 07/23/2018 Generated: 08/03/18 1:19 pm Comments DCP- Discharge Planning Updated by [email or web address]: Lani Wylie on 08/02/18 2:[address] [facility] called and states they have auth for patient to go to [facility]. Her daughter will take her per patient. Tian states ok for daughter to take her there. Dr. Aguilera states no need to repeat xray at this time. She will go to a skilled bed at [facility]. telecom coordinator and primary nurse notified. CM will continue to follow and assist with discharge planning/needs. DCP- Discharge Planning Updated by [id number]: Lani Wylie on 08/02/18 10:[address] Received a call from Araseli with [facility] that she had made a mistake and patient does meet inpatient rehab criteria with authorization for 2 weeks #[id number]. I spoke with the patient and she wants to go to [facility] for SNF. I informed Araseli and gave Araseli's number to Yin Lacey to call her for authorization. DCP- Discharge Planning Updated by [email or web address]: Lani Wylie on 08/02/18 6:[address] Spoke with patient this morning and she states she would just rather go to [facility] in [place] for rehab. CELINE signed and I notified mike Nobles for [facility], supporting clinical faxed. CM will continue to follow and assist with discharge planning/needs. DCP- Discharge Planning Updated by [email or web address]: Lani Wylie on 08/01/18 3:[address] Spoke with the patient concerning rehab and she is agreeable to SNF if inpatient rehab is denied. She would like to go to [place], her daughter lives there. She is going to ask her daughter about [facility] in [place] and will let me know if I can send the referral there. CM will continue to follow and assist with discharge planning/needs. DCP- Discharge Planning Updated by [email or web address]: Lani Wylie on 07/27/18 2:[address] PATIENT IS STILL IN SURGERY. I LEFT THE PHYSICIAN REFERRAL NUMBER AND ALSO THE NUMBER TO [facility]. CM WILL CONTINUE TO FOLLOW AND ASSIST WITH DISCHARGE PLANNING/NEEDS. DCP- Discharge Planning Updated by [id number]: Chiara Wilson on 07/23/18 11:[address] Patient Name: CHOLO RIVAS Admission Status: ER Accout number: [id number] Admission Date: 07-23-2018 : 1950 Admission Diagnosis: Attending: NIGHAT WILSON Current LOS: 1 Anticipated DC Date: 07-25-2018 Planned Disposition: Home Primary Insurance: [facility] Discharge Planning Comments: CM met with patient to complete initial dc planning assessment. CM educated patient on the CM role and verbal consent given by patient to complete assessment. Patient lives at home alone and reports she is independent in her care. At discharge patient plans to return home alone and feels this is a safe discharge. CM discussed availability of home health, rehab services, and medical equipment. Patient denied known discharge needs at this time. Patient reports she recently moved to the [facility] and is needing to find a PCP here. This could cause a problem with arranging HH if needed at de. CM will continue to follow and will assist as needed with dc plans/needs. Tmr Teacher: Chiara Wilson RN,[facility] DCPIA - Discharge Planning Initial Assessment Updated by [email or web address]: Chiara Wilson on 07/23/18 11:59 am * Is the patient Alert and Oriented? Yes * How many steps to enter\exit or inside your home? * PCP Dr. Kalyan Quiroz in [facility] - patient recently moved to [facility] and is looking for an new PCP. * Pharmacy [facility] near the [facility]. * Preadmission Environment Home Alone * ADLs Independent * Equipment Cane Glucometer Rolling Walker * List name and contact numbers for known caregivers / representatives who currently or will assist patient after discharge: Margret Albright - [place] - [phone] * Verbal permission to speak to the caregivers and representatives has been obtained from the patient. Yes * Community resources currently utilized None * Additional services required to return to the preadmission environment? No * Can the patient safely return to the preadmission environment? Yes * Has this patient been hospitalized within the prior 30 days at any hospital? No Coverage Notice Reviewer: [id number] Wylie Notice Issued Date-Time: 08/02/2018 7:39 Notice Type: Patient Choice Letter Notice Delivered To: Patient Relationship to Patient: Employee Benefits Coordinator Name: Delivery Method: HAND - Hand Delivered Elizabeth Days: Prior Verbal Notification: Recipient Understood Notice: Yes Recipient Signature: Yes Med Rec Note Co-signed by Attending: Coverage Notice Comment: [facility] Reviewer: [id number] Wylie Notice Issued Date-Time: 08/02/2018 15:03 Notice Type: IM Discharge Notice Notice Delivered To: Patient Relationship to Patient: Employee Benefits Coordinator Name: Delivery Method: HAND - Hand Delivered Elizabeth Days: Prior Verbal Notification: Recipient Understood Notice: Yes Recipient Signature: Yes Med Rec Note Co-signed by Attending: Coverage Notice Comment: IMM explained, signed, given, copy placed in MR Last DP export: 08/02/18 2:17 p Patient Name: CHOLO RIVAS Page 13739 at 1219 All edits/amendments must be made on the electronic document DICTATION DATE: 08/03/181217 MORTGAGE PROFESSIONAL: MAMADOU 08/03/18 1218 RPT#: [id number] DC DATE:08/02/18 STATUS: DIS IN [facility] [address] [place] [address] END OF REPORT
== END 2018-08-02 18:08 | DRG 519 ==
LOC: D.ER 08:59 → D.MS 11:20 → D.EDHOLD 11:20 → D.MS 11:55
PROVIDERS: Family Medicine; Internal Medicine Nephrology; Neurological Surgery; ADMIT Family Medicine; ATTEND Family Medicine
PROC: 00NX0ZZ Release Thoracic Spinal Cord, Open Approach (ICD-10-PCS; principal; 2018-07-27 08:30)
DX: S22.080A Wedge compression fracture of T11-T12 vertebra, initial encounter for closed fracture (principal); M51.05 Intervertebral disc disorders with myelopathy, thoracolumbar region; S82.62XA Displaced fracture of lateral malleolus of left fibula, initial encounter for closed fracture; W19.XXXA Unspecified fall, initial encounter; E11.40 Type 2 diabetes mellitus with diabetic neuropathy, unspecified; E11.65 Type 2 diabetes mellitus with hyperglycemia; I25.10 Atherosclerotic heart disease of native coronary artery without angina pectoris; K21.9 Gastro-esophageal reflux disease without esophagitis

== ENCOUNTER → 2018-10-16 13:08 | Outpatient (CLI) | payer MEDICARE ==
[2018-07-23 12:25] VITALS: BMI 29.7
[~2018-10-16 13:08] MED LIST changes: +FEXOFENADINE H180 MG PO; +HYDROCODON-ACE1 EAC2 PO; +MIRALAX17 GM PO
== END | disposition home or self-care (01) ==
LOC: D.RAD 13:08
PROVIDERS: ATTEND Emergency Medicine
DX: M25.552 Pain in left hip (principal)